=== PATIENT | male | born 1935 | race African-American/Black ===

== ENCOUNTER 2017-07-08 12:10 | Emergency (ER) | payer MEDICARE, OTHER ==
[~2017-07-08] VITALS: Ht 172.7 cm; Wt 99.8 kg
[~2017-07-08 12:10] MED LIST: AMLODIPINE BESYL5 MG ORAL; ATORVASTATIN CA20 MG ORAL; AVAPRO150 MG ORAL; PERCOCET 5-3251 EACH ORAL; TAMSULOSIN HCL0.4 MG ORAL
[2017-07-08 12:30] VITALS: BP 165/100
--- NOTE | 2017-07-08 12:51 | Emergency Room Report ---
History of Present Illness General Chief Complaint: Back Pain-No Injury Source: Patient Present Illness HPI 82 YO Male presents to the ED C/O 05/31 in severity right flank pain since this am. pt. reports constant dull ache with intermittent sharp exacerbations. pt. has difficult time finding POC. reports drinking chardonnay daily, and does not hydrate with water regularly. pt. has hx of renal stone exactly 1 year ago. denies fevers or chills reports feeling clammy and light headed episodically throughout the day. has hx of HTN. pt. 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 Pt. denies night sweats, significant changes in weight or hx of BPH or cancer in his family. Pt. denies CP, SOB, reports some abdominal discomfort but denies tenderness. denies N/V, Constipation or diarrhea. denies LOC, syncope, palpitations or PUGH. Allergies: Coded Allergies: No Known Allergies (Unverified , 07/06/16) Patient History Past Medical History: see triage record Past Surgical History: none Pertinent Family History: none Reviewed Nursing Documentation: PMH: Agreed, PSxH: Agreed Nursing Documentation-PMH Past Medical History: No History, Except For Hx Hypertension: Yes Review of Systems All Other Systems: negative except mentioned in HPI Physical Exam Vital Signs Date Time Temp Pulse Resp B/P (MAP) Pulse Ox O2 Delivery O2 Flow Rate FiO2 07/08/17 12:21 98.1 82 16 165/100 96 Room Air Sp02 EP Interpretation: reviewed, normal General Appearance: alert, GCS 15, non-toxic, moderate distress - Pt. having difficult time finding POC Head: normocephalic, atraumatic Eyes: bilateral eye normal inspection ENT: hearing grossly normal, normal voice Neck: full range of motion Respiratory: lungs clear, normal breath sounds, no respiratory distress, no wheezing, speaking full sentences Cardiovascular #1: regular rate, rhythm, no edema, normal capillary refill Gastrointestinal: normal bowel sounds, soft, non-distended, no guarding, no rebound, tenderness - mild generalized discomfort with palpation in all 4 quadrants, no appreciable murphys signs or mcburney's Rectal: deferred Genitourinary: CVA tenderness (R), CVA tenderness (L) Musculoskeletal: back normal, gait/station normal, normal range of motion, tender - some TTP to palpation to the right paraspinal muscular area with CVA tenderness, no midline spinal ttp, no obvious deformity or erythema. Neurologic: alert, oriented x3, responsive, motor strength/tone normal, sensory intact, speech normal Skin: normal color, no rash, warm/dry, well hydrated Lymphatic: no adenopathy Medical Decision Making PA Attestation Dr. Del Rosario is my supervising Physician whom patient management has been discussed with. Diagnostic Impression: Primary Impression: Flank pain Additional Impressions: Perinephric fluid collection Perinephritis ER Course 82 YO Male presents to the ED C/O 05/31 in severity right flank pain since this am. pt. reports constant dull ache with intermittent sharp exacerbations. pt. has difficult time finding POC. reports drinking chardonnay daily, and does not hydrate with water regularly. pt. has hx of renal stone exactly 1 year ago. denies fevers or chills reports feeling clammy and light headed episodically throughout the day. has hx of HTN. pt. 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 Pt. denies night sweats, significant changes in weight or hx of BPH or cancer in his family. Pt. denies CP, SOB, reports some abdominal discomfort but denies tenderness. denies N/V, Constipation or diarrhea. denies LOC, syncope, palpitations or PUGH. Ddx considered but are not limited to Diverticulitis, acute appy, diarrhea,UC, PUD, GE, pancreatitis, gallstone, kidney stone, pyelonephritis, UTI, obstruction. Vital signs: are WNL, pt. is afebrile H&PE are most consistent with possible renal stone vs. muscular injury. will also do some cardiac evaluation due to pt. age, rf's and described lightheadedness with feeling clammy. ORDERS: -CBC: WNL/ unremarkable - no Leukocytosis or significant anemia -CMP: Mildly elevated ALT,AST and Alk. Phos, and bilirubin. normal renal function. - lipase: WNL - UA: unremarkable- no hematuria - CT abdomen and pelvis With contrast: "negative for stone, bilateral perinephric fluid collection and fat stranding , the right more predominantly, could represent inflammation, no evidence of urinary stone, incidental finding of bilateral subcentimeter renal lesions most likely renal simple cortical cysts , fatty liver, ovoid calcified structure within the cecal lumen, minimal prostatomegaly." --Per official radiology report- Please see report for specific details. ED INTERVENTIONS: -- 1000NS -8mg Morphine for pain -Toradol IV 20mg - Tamsulosin 0.8mg IV --PT. is re-assessed to be comfortable, after administration of IV pain medications and fluids. d/w pt. results and incidental findings of his CT scan. DISCHARGE: At this time pt. is stable for d/c to home. Will provide printed patient care instructions, and any necessary prescriptions. Care plan and follow up instructions have been discussed with the patient prior to discharge. D/w Pt. hydration, follow up with PCP regarding lab results and CT findings. Labs Test 07/08/17 13:12 07/08/17 13:45 07/08/17 15:04 White Blood Count 4.5 K/UL (4.8-10.8) Red Blood Count 5.25 M/UL (4.70-6.10) Hemoglobin 15.3 G/DL (14.2-18.0) Hematocrit 49.4 % (42.0-52.0) Mean Corpuscular Volume 94 FL (80-99) Mean Corpuscular Hemoglobin 29.1 PG (27.0-31.0) Mean Corpuscular Hemoglobin Concent 30.9 G/DL (32.0-36.0) Red Cell Distribution Width 12.5 % (11.6-14.8) Platelet Count 226 K/UL (150-450) Mean Platelet Volume 7.5 FL (6.5-10.1) Neutrophils (%) (Auto) 61.9 % (45.0-75.0) Lymphocytes (%) (Auto) 22.3 % (20.0-45.0) Monocytes (%) (Auto) 12.9 % (1.0-10.0) Eosinophils (%) (Auto) 1.5 % (0.0-3.0) Basophils (%) (Auto) 1.4 % (0.0-2.0) Sodium Level 140 MMOL/L (136-145) Potassium Level 4.3 MMOL/L (3.5-5.1) Chloride Level 107 MMOL/L (98-107) Carbon Dioxide Level 25 MMOL/L (21-32) Anion Gap 8 mmol/L (5-15) Blood Urea Nitrogen 15 mg/dL (7-18) Creatinine 1.2 MG/DL (0.55-1.30) Estimat Glomerular Filtration Rate mL/min (>60) Glucose Level 130 MG/DL (74-106) Calcium Level 9.6 MG/DL (8.5-10.1) Total Bilirubin 1.2 MG/DL (0.2-1.0) Direct Bilirubin 0.4 MG/DL (0.0-0.3) Aspartate Amino Transf (AST/SGOT) 74 U/L (15-37) Alanine Aminotransferase (ALT/SGPT) 87 U/L (12-78) Alkaline Phosphatase 163 U/L (46-116) Total Protein 7.9 G/DL (6.4-8.2) Albumin 3.9 G/DL (3.4-5.0) Globulin 4.0 g/dL Albumin/Globulin Ratio 1.0 (1.0-2.7) Troponin I 0.002 ng/mL (0.000-0.056) Urine Color Pale yellow Urine Appearance Clear Urine pH 7 (4.5-8.0) Urine Specific [place] 1.005 (1.005-1.035) Urine Protein Negative (NEGATIVE) Urine Glucose (UA) Negative (NEGATIVE) Urine Ketones Negative (NEGATIVE) Urine Occult Blood Negative (NEGATIVE) Urine Nitrite Negative (NEGATIVE) Urine Bilirubin Negative (NEGATIVE) Urine Urobilinogen Normal MG/DL (0.0-1.0) Urine Leukocyte Esterase Negative (NEGATIVE) Labs Test 07/08/17 13:12 07/08/17 13:45 07/08/17 15:04 White Blood Count 4.5 K/UL (4.8-10.8) Red Blood Count 5.25 M/UL (4.70-6.10) Hemoglobin 15.3 G/DL (14.2-18.0) Hematocrit 49.4 % (42.0-52.0) Mean Corpuscular Volume 94 FL (80-99) Mean Corpuscular Hemoglobin 29.1 PG (27.0-31.0) Mean Corpuscular Hemoglobin Concent 30.9 G/DL (32.0-36.0) Red Cell Distribution Width 12.5 % (11.6-14.8) Platelet Count 226 K/UL (150-450) Mean Platelet Volume 7.5 FL (6.5-10.1) Neutrophils (%) (Auto) 61.9 % (45.0-75.0) Lymphocytes (%) (Auto) 22.3 % (20.0-45.0) Monocytes (%) (Auto) 12.9 % (1.0-10.0) Eosinophils (%) (Auto) 1.5 % (0.0-3.0) Basophils (%) (Auto) 1.4 % (0.0-2.0) Sodium Level 140 MMOL/L (136-145) Potassium Level 4.3 MMOL/L (3.5-5.1) Chloride Level 107 MMOL/L (98-107) Carbon Dioxide Level 25 MMOL/L (21-32) Anion Gap 8 mmol/L (5-15) Blood Urea Nitrogen 15 mg/dL (7-18) Creatinine 1.2 MG/DL (0.55-1.30) Estimat Glomerular Filtration Rate mL/min (>60) Glucose Level 130 MG/DL (74-106) Calcium Level 9.6 MG/DL (8.5-10.1) Total Bilirubin 1.2 MG/DL (0.2-1.0) Direct Bilirubin 0.4 MG/DL (0.0-0.3) Aspartate Amino Transf (AST/SGOT) 74 U/L (15-37) Alanine Aminotransferase (ALT/SGPT) 87 U/L (12-78) Alkaline Phosphatase 163 U/L (46-116) Total Protein 7.9 G/DL (6.4-8.2) Albumin 3.9 G/DL (3.4-5.0) Globulin 4.0 g/dL Albumin/Globulin Ratio 1.0 (1.0-2.7) Troponin I 0.002 ng/mL (0.000-0.056) EKG Diagnostic Results EP Interpretation: Dr Del Rosario Rate: normal - 73 BPM Rhythm: NSR ST Segments: no acute changes ASA given to the pt in ED: No PA Scribe Text Dr. Del Rosario's interpretation has been scribed by TOBIN Garcia Last Vital Signs Date Time Temp Pulse Resp B/P (MAP) Pulse Ox O2 Delivery O2 Flow Rate FiO2 07/08/17 12:21 98.1 82 16 165/100 96 Room Air Disposition: HOME, SELF-CARE Condition: Stable Scripts Oxycodone/Acetaminophen 5-325* (PERCOCET 5-325 MG TABLET*) 1 Each Tablet 1 TAB ORAL Q6H Y for For Pain, #6 TAB 0 Refills Prov: Shazia Garcia 07/08/17 Ciprofloxacin* (CIPRO*) 500 Mg Tablet 500 MG PO BID for 10 Days, #20 TAB Prov: Shazia Garcia 07/08/17 Patient Instructions: Flank Pain, Ahpt-ex-Asiv, Pyelonephritis, Adult, Easy-to- Read Additional Instructions: Take medications as directed. Follow up with a Primary Care Provider in 3-5 days, even if your symptoms have resolved. - Lab work performed at today's ED visits showed elevation in all three liver enzymes AST,ALT, Alk Phos. - recommend continued evaluation by your PCP. - CT imaging performed at today's ED visit incidentally showed some enlargement in your Prostate - recommend continued evaluation by your PCP - Cardiac work-up and renal function was normal. Return sooner to ED if new symptoms occur, or current symptoms become worse. - Please note that this Emergency Department Report was dictated using [email or web address] practitioner technology software, occasionally this can lead to erroneous entry secondary to interpretation by the dictation equipment. Shazia Garcia Jul 08, 2017 12:51
[2017-07-08] MEDS: Tamsulosin 0.4mg cap ORAL ONE (13:03)
[2017-07-08] MEDS: Morphine Sulfate 4mg/ml Inj IVP ONE (13:04)
[2017-07-08] MEDS: Ketorolac 30mg Inj IV ONE (13:04)
[2017-07-08 13:33] LABS: BASOPHILS % (AUTO) 1.4 % (0.0-2.0); EOSINOPHILS % (AUTO) 1.5 % (0.0-3.0); LYMPHOCYTES % (AUTO) 22.3 % (20.0-45.0); MEAN CORPUSCULAR HEMOGLOBIN 29.1 PG (27.0-31.0); MEAN CORPUSCULAR HGB CONC 30.9 G/DL (32.0-36.0); MEAN CORPUSCULAR VOLUME 94 FL (80-99); MEAN PLATELET VOLUME 7.5 FL (6.5-10.1); MONOCYTES % (AUTO) 12.9 % (1.0-10.0); NEUTROPHILS % (AUTO) 61.9 % (45.0-75.0); PLATELET COUNT 226 K/UL (150-450); RED BLOOD COUNT 5.25 M/UL (4.70-6.10); RED CELL DISTRIBUTION WIDTH 12.5 % (11.6-14.8); WHITE BLOOD COUNT 4.5 K/UL (4.8-10.8)
[2017-07-08 13:44] LABS: ANION GAP 8 mmol/L (5-15); CALCIUM 9.6 MG/DL (8.5-10.1); CARBON DIOXIDE 25 MMOL/L (21-32); CHLORIDE 107 MMOL/L (98-107); CREATININE 1.2 MG/DL (0.55-1.30); POTASSIUM 4.3 MMOL/L (3.5-5.1); SODIUM 140 MMOL/L (136-145)
[2017-07-08 13:54] LABS: ALANINE AMINOTRANSFERASE 87 U/L (12-78); ASPARTATE AMINO TRANSFERASE 74 U/L (15-37); TOTAL PROTEIN 7.9 G/DL (6.4-8.2)
[2017-07-08] MEDS: Morphine Sulfate 2mg/ml Inj IVP ONE (13:57)
[2017-07-08 14:14] LABS: BILIRUBIN,DIRECT 0.4 MG/DL (0.0-0.3)
--- NOTE | 2017-07-08 15:00 | Diagnostic Imaging Report ---
Clinical Indication: Abdominal pain. Right flank pain Technique: No oral contrast utilized, per emergency room physician request IV administration nonionic contrast. Venous phase spiral acquisition obtained through the abdomen and pelvis. Multiplanar reconstructions were generated. Total dose length product 996 mGycm. CTDIvol(s) 19 mGy. Dose reduction achieved using automated exposure control Comparison: None Findings: There is some bilateral perinephric fluid and fat stranding, more on the right on the left. There is renal parenchymal opacification bilaterally. Subcentimeter low-attenuation lesions are seen in the left renal parenchyma. No renal or ureteral calculi, hydronephrosis, or hydroureter demonstrated. The appendix is normal. An unusual 2 cm diameter calcific ovoid density is seen within the single-lumen. This demonstrates a thick calcified rim, central low-attenuation mixed with calcifications. This does not appear to causing any obstruction. There is no evidence of diverticulosis or diverticulitis. No small bowel distention. No free or loculated intraperitoneal air or fluid. The liver is diffusely hypoattenuating. Tiny low-attenuation foci are seen scattered throughout the liver, predominantly in the left lobe. No other focal abnormality. The gallbladder is distended. No definite stones or wall thickening. No biliary ductal dilatation. The pancreas, spleen, adrenals are unremarkable. No retroperitoneal or mesenteric mass or adenopathy. No pelvic mass or adenopathy. The prostate is only minimally enlarged, but does indent the bladder floor. The heart is mildly enlarged. The lung bases demonstrate posterior dependent atelectatic changes. The bones demonstrate degenerative spondylosis changes. Impression: Bilateral right greater than left perinephric fluid and fat stranding, without any other significant renal abnormality demonstrated. This is a nonspecific finding, could indicate bilateral renal inflammation, but could be chronic and/or baseline for this patient. Correlate with clinical findings No evidence of urinary stone disease Incidental finding of bilateral subcentimeter low-attenuation left renal lesions, too small to characterize, most likely benign simple cortical cysts. No further followup necessary Fatty liver Unusual ovoid calcified structure within the cecal lumen. Etiology/significance uncertain. Possibilities include large calcified fecalith, ingested foreign body Minimal prostatomegaly Borderline cardiomegaly Incidental findings of posterior dependent pulmonary atelectatic changes, minimal degenerative spondylosis The CT scanner at [facility] is accredited by the [employer] and the scans are performed using protocols designed to limit radiation exposure to as low as reasonably achievable to attain images of sufficient resolution adequate for diagnostic evaluation.
[2017-07-08] MEDS ORDERED: CIPRO500 MG PO (15:43)
[2017-07-08] MEDS ORDERED: PERCOCET 5-3251 EACH ORAL (15:43)
[2017-07-08 15:53] LABS: APPEARANCE,URINE CLEAR; KETONES,URINE NEGATIVE (NEGATIVE); LEUKOCYTE ESTERASE ,URINE NEGATIVE (NEGATIVE); NITRITE,URINE NEGATIVE (NEGATIVE); PH,URINE 7 (4.5-8.0); PROTEIN,URINE NEGATIVE (NEGATIVE); UROBILINOGEN,URINE NORMAL MG/DL (0.0-1.0)
[2017-07-08] MEDS: Ciprofloxacin 500mg tab ORAL ONE (15:56)
[2017-07-08 16:09] VITALS: BP 165/100
--- NOTE | 2017-07-12 14:55 | Cardiology Report ---
APPROVED REPORT EKG Measurement Heart [id number] Normal sinus rhythm Left axis deviation Pulmonary disease pattern Incomplete right bundle branch block Nonspecific ST and T wave abnormality Abnormal ECG
== END 2017-07-08 16:58 | disposition home or self-care (01) ==
LOC: EMR 14:20
DX: R10.9 Unspecified abdominal pain (principal); N15.9 Renal tubulo-interstitial disease, unspecified; K76.0 Fatty (change of) liver, not elsewhere classified
CPT/HCPCS: 36415; 74177; 80053; 81003; 82248; 84484; 85025; 93005; 96374; 96375; 99284; J1885; J2270; Q9967